=== PATIENT | female | born 1950 | race Two or more races ===

== ENCOUNTER 2021-08-15 21:59 | Emergency (ER) | payer OTHER ==
[~2021-08-15] VITALS: Ht 149.9 cm; Wt 55.8 kg
[2021-08-15] MEDS ORDERED: EUTHYROX75 MCG PO (22:36)
[2021-08-15] MEDS ORDERED: VASOTEC20 MG PO (22:36)
== END 2021-08-16 05:00 | disposition home or self-care (01) ==
LOC: ER 21:59
DX: S00.81XA Abrasion of other part of head, initial encounter (principal); W01.0XXA Fall on same level from slipping, tripping and stumbling without subsequent striking against object, initial encounter; Y93.89 Activity, other specified; Y92.89 Other specified places as the place of occurrence of the external cause; Y99.8 Other external cause status; Z20.828 Contact with and (suspected) exposure to other viral communicable diseases

== ENCOUNTER 2023-09-19 14:57 | Outpatient (CLI) | payer OTHER ==
[~2023-09-19 14:57] MED LIST: EUTHYROX75 MCG PO; VASOTEC20 MG PO
== END 2023-09-19 15:06 | disposition home or self-care (01) ==
LOC: RAD 14:57
PROVIDERS: ATTEND General Practice
DX: M54.50 Low back pain, unspecified (principal)